=== PATIENT | male | born 1995 | race American Indian/Alaskan Native ===

== ENCOUNTER 2020-01-28 21:12 | Emergency (ER) | payer SELFPAY ==
--- NOTE | 2020-01-28 21:26 | Emergency Department Report ---
ED Upper Extremity Inj HPI - General Stated Complaint: RT HAND CUT BY SAW Time Seen by Provider: 01/28/20 21:15 Source: patient Mode of arrival: Ambulatory Limitations: No Limitations - History of Present Illness Initial Comments: Patient is a 24-year-old male that presents emergency room with complaints of right hand laceration. Patient states he was working with a saw blade pinched his hand. Patient states that he cut the base of his 4 digits where the fingers connect with the hand. Patient states he has difficulty extending his fingers. Patient states his tetanus is up-to-date. Patient states the pain is a 10 out of 10. Patient states he covered it with a shirt but the bleeding is not controlled. Patient states he wants to leave the hospital. Patient says does not want to be here. Complaint: Injury to:: right, hand ED Review of Systems ROS: Stated complaint: RT HAND CUT BY SAW Other details as noted in HPI ED Physical Exam - General General appearance: alert, in no apparent distress - Head Head exam: Present: atraumatic, normocephalic - Eye Eye exam: Present: normal appearance, PERRL Pupils: Present: normal accommodation - ENT ENT exam: Present: mucous membranes moist - Neck Neck exam: Present: normal inspection - Respiratory Respiratory exam: Present: normal lung sounds bilaterally. Absent: respiratory distress, wheezes, rales - Cardiovascular Cardiovascular Exam: Present: regular rate, normal rhythm. Absent: systolic murmur, diastolic murmur, rubs, gallop - GI/Abdominal GI/Abdominal exam: Present: soft, normal bowel sounds. Absent: distended, tenderness, guarding - Rectal Rectal exam: Present: deferred - Extremities Exam Extremities exam: Present: normal inspection (Except for right hand. Laceration noted to the proximal aspect of digits 2, 3, 4, 5. Patient has weakness with flexion of the fingers.), full ROM - Back Exam Back exam: Present: normal inspection - Neurological Exam Neurological exam: Present: alert, oriented X3 - Psychiatric Psychiatric exam: Present: normal affect, normal mood - Skin Skin exam: Present: warm, dry, normal color, other. Absent: rash ED Course - Reevaluation(s) Reevaluation #1: Initial evaluation done. Patient states he does not want to be in the hospital. Patient dates he got things he needs to do. I discussed the risk with patient. Patient voiced understanding of the risk of leaving the hospital AGAINST MEDICAL ADVICE. Patient had initial evaluation but no further evaluation was done in the ER. Patient signed AMA form. Dain the nurse witnessed the signing and explanation of the AMA form and the risk. Patient left the hospital AGAINST MEDICAL ADVICE. 01/28/20 21:24 ED Medical Decision Making - Medical Decision Making Patient is a 24-year-old male that presents emergency room with complaints of proximal palmar finger lacerations to digits 2,3,4 and 5. Patient had a initial evaluation done however the patient stated he does not want to stay in the hospital. Patient left the hospital AGAINST MEDICAL ADVICE. I discussed the risk with patient and patient voiced understanding of the risk. Patient signed AMA form. Patient voiced understanding of AMA form. Prior to the patient leaving the hospital, I encouraged the patient to stay to allow us to fully evaluate him and the patient still wanted to leave. - Differential Diagnosis Hand laceration, finger laceration with tendon involvement. Critical care attestation.: If time is entered above; I have spent that time in minutes in the direct care of this critically ill patient, excluding procedure time. ED Disposition Clinical Impression: Finger laceration involving tendon Qualifiers: Encounter type: initial encounter Qualified Code(s): S61.219A - Laceration without foreign body of unspecified finger without damage to nail, initial encounter Hand laceration Qualifiers: Encounter type: initial encounter Foreign body presence: without foreign body Laterality: right Qualified Code(s): S61.411A - Laceration without foreign body of right hand, initial encounter Disposition: [id number] LEFT AGAINST MED ADVICE Is pt being admited?: No Does the pt Need Aspirin: No Condition: Critical Forms: AMA Form Time of Disposition: 21:26
== END 2020-01-28 21:31 | disposition left against medical advice (07) ==
LOC: ED 21:12
DX: S61.411A Laceration without foreign body of right hand, initial encounter (principal); S61.219A Laceration without foreign body of unspecified finger without damage to nail, initial encounter; W26.8XXA Contact with other sharp object(s), not elsewhere classified, initial encounter; Y93.89 Activity, other specified; Y92.89 Other specified places as the place of occurrence of the external cause; Y99.8 Other external cause status
CPT/HCPCS: 99282